=== PATIENT | male | born 1995 | race Caucasian/White ===

== ENCOUNTER 2017-01-30 10:55 | Emergency (ER) | payer MEDICAID ==
[~2017-01-30] VITALS: Ht 170.2 cm; Wt 82.7 kg
[2017-01-30] MEDS: MORPHINE SULFATE 4 MG/ML SYRINGE IM ONE ×2 (13:26→13:29)
[2017-01-30 14:36] VITALS: BP 137/76
[2017-01-30] MEDS ORDERED: TraMADol HCL 50 MG TABLET PO ONE (14:45)
[2017-01-30] MEDS ORDERED: IBUPROFEN 800 MG TABLET PO ONE (14:45)
== END 2017-01-30 15:30 | disposition home or self-care (01) ==
LOC: EMS 11:01
DX: S60.221A Contusion of right hand, initial encounter (principal); S60.211A Contusion of right wrist, initial encounter; F12.90 Cannabis use, unspecified, uncomplicated; F17.210 Nicotine dependence, cigarettes, uncomplicated; W23.0XXA Caught, crushed, jammed, or pinched between moving objects, initial encounter; Y93.89 Activity, other specified; Y92.89 Other specified places as the place of occurrence of the external cause; Y99.0 Civilian activity done for income or pay
CPT/HCPCS: 29125; 73110; 73130; 99284; J2270

== ENCOUNTER 2018-08-29 02:26 | Emergency (ER) | payer SELFPAY ==
[~2018-08-29] VITALS: Ht 177.8 cm; Wt 102.0 kg
[2018-08-29 02:29] VITALS: BP 138/88
== END 2018-08-29 04:10 | disposition left against medical advice (07) ==
LOC: EMS 02:26
DX: K08.89 Other specified disorders of teeth and supporting structures (principal); Z53.21 Procedure and treatment not carried out due to patient leaving prior to being seen by health care provider